=== PATIENT | female | born 1975 | race Caucasian/White ===

== ENCOUNTER 2020-02-22 09:44 | Emergency (ER) | payer OTHER ==
[~2020-02-22] VITALS: Ht 162.6 cm; Wt 55.3 kg
[~2020-02-22 09:44] MED LIST: MAXZIDE-25 MG1 EACH PO
[2020-02-22 10:18] LABS: ABSOLUTE LYMPHOCYTES 1.3 thou/uL (0.8-5.3); ABSOLUTE MONOCYTES 0.6 thou/uL (0.0-1.2); ABSOLUTE NEUTROPHILS 8.3 thou/uL (1.6-8.1); BASOPHILS 0.3 %; EOSINOPHILS 0.3 %; HEMATOCRIT 46.6 % (37.0-47.0); MCH 35.5 pg (26.0-34.0); MCHC 34.4 g/dL (28.0-37.0); MCV 103.2 fL (80.0-100.0); MONOCYTES 5.8 %; MPV 7.8 fl. (7.2-11.1); NUCLEATED RBCS 0 /100WBC; PLATELET COUNT* 398 thou/uL (150-400); POLYS 80.6 %; RBC 4.52 mil/uL (4.20-5.00); WBC 10.3 thou/uL (4.0-11.0)
[2020-02-22 10:25] LABS: CALCIUM 8.8 mg/dL (8.5-10.1); POTASSIUM 3.3 mmol/L (3.5-5.1)
[2020-02-22 10:34] LABS: ALBUMIN 3.9 g/dL (3.4-5.0); MAGNESIUM 1.8 mg/dL (1.8-2.4); TOTAL BILIRUBIN 0.5 mg/dL (<0.1-1.0); TOTAL PROTEIN 7.3 g/dL (6.4-8.2)
[2020-02-22 13:53] VITALS: BP 102/62
--- NOTE | 2020-02-22 15:42 | EKG ---
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1975 Requested By: Deven Max Order Number: [id number] MD: Dawson Fountain Measurements Intervals [place] Rate: 91 P: 79 KS: 122 QRS: 41 QRSD: 94 T: 64 QT: 360 QTc: 443 Interpretive Statements Sinus rhythm Biatrial enlargement Artifact in lead(s) I,III,aVR,aVL,aVF,V2 No previous ECG available for comparison Electronically Signed On 02-22-2020 15:42:34 CDT by Dawson Fountain [email or web address] <ELECTRONICALLY SIGNED> By: Dawson Fountain MD, [facility] 02/22/20 1542 0949 0949 Dawson Fountain MD, [facility] /EPI
--- NOTE | 2020-02-22 15:43 | EKG ---
[place] [address] ELECTROCARDIOGRAM REPORT Name: NIMA AGUILARZABETH Room: 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 : 1975 Requested By: Deven Max Order Number: [id number] MD: Dawson Fountain Measurements Intervals [place] Rate: 61 P: -29 IA: 122 QRS: 40 QRSD: 87 T: 51 QT: 437 QTc: 441 Interpretive Statements Sinus rhythm Anteroseptal infarct, age indeterminate cannot be excluded Compared to ECG 02/22/2020 09:49:49 Myocardial infarct finding now to be considered Atrial abnormality no longer present Electronically Signed On 02-22-2020 15:43:35 CDT by Dawson Fountain [email or web address] <ELECTRONICALLY SIGNED> By: Dawson Fountain MD, [facility] 02/22/20 1543 1146 1146 Dawson Fountain MD, [facility] /EPI
== END 2020-02-22 13:54 | disposition home or self-care (01) ==
LOC: M.ERS 09:44
PROVIDERS: Emergency Medicine Emergency Medical Services
DX: R07.89 Other chest pain (principal); Z90.710 Acquired absence of both cervix and uterus; Z98.82 Breast implant status; Z88.6 Allergy status to analgesic agent